=== PATIENT | female | born 1955 | race Caucasian/White ===

== ENCOUNTER 2018-04-20 23:31 | Outpatient (CLI) | payer OTHER | END 2018-04-20 23:32 | disposition critical access hospital (66) | LOC: EMS 23:31 | PROVIDERS: ATTEND Surgery | DX: Z72.89 Other problems related to lifestyle (principal) | CPT/HCPCS: A0425; A0429 ==

== ENCOUNTER 2018-04-20 23:36 | Emergency (ER) | payer OTHER ==
[2018-04-20] MEDS ORDERED: SODIUM CHLORIDE 0.9% 1,000 ML IV STA (23:50)
[2018-04-20] MEDS ORDERED: ONDANSETRON 4 MG/2 ML VIAL IVP STA (23:50)
[2018-04-21 00:16] LABS: BASOPHILS # (AUTO) 0.1 10^3/uL (0.0-0.1); BASOPHILS % (AUTO) 1.1 %; EOSINOPHILS # (AUTO) 0.1 10^3/uL (0.0-0.7); EOSINOPHILS % (AUTO) 1.4 %; HGB - HEMOGLOBIN 14.3 g/dL (12.0-16.0); LYMPHOCYTES # (AUTO) 2.2 10^3/uL (1.5-3.5); LYMPHOCYTES % (AUTO) 28.1 %; MEAN CORPUSCULAR HEMOGLOBIN 32.4 pg (27.0-31.0); MEAN CORPUSCULAR HGB CONC 34.1 g/dL (32.0-36.0); MEAN CORPUSCULAR VOLUME 95.1 fL (81.0-99.0); MEAN PLATELET VOLUME 6.8 fL (7.9-10.8); MONOCYTES # (AUTO) 0.4 10^3/uL (0.0-1.0); MONOCYTES % (AUTO) 4.9 %; NEUTROPHILS # (AUTO) 4.9 10^3/uL (1.5-6.6); NEUTROPHILS % (AUTO) 64.5 %; PLT - PLATELET COUNT 415 10^3/uL (130-450); RED CELL DISTRIBUTION WIDTH 14.9 % (12.0-15.0); WHITE BLOOD COUNT 7.7 x10^3/uL (4.8-10.8)
--- NOTE | 2018-04-21 00:20 | ED Physician Documentation ---
PD HPI NVD - Stated complaint Stated Complaint: ETOH - Chief complaint Chief Complaint: Abd Pain - History obtained from History obtained from: Patient - History of Present Illness Timing - onset: How many days ago (3) Timing - details: Gradual onset, Intermittant Associated symptoms: Abdominal pain (mild dull discomfort across upper abdomen). No: Fever Contributing factors: Alcohol use Improved by: Other (nothing) Worsened by: Other (no exacerbating factors) Recently seen: Not recently seen - Additonal information Additional information: visiting [place] a conference. she tells me she is in ED tonight because she has been drinking more than eating food. with prompting, she elaborates that she has a h/o alcoholism and has been drinking a few (per patient) bottles of wine per day for the past several days. c/o mild upper abdominal dull, burning pain and nausea, mild anxiety Review of Systems Cardiac: reports: Reviewed and negative Respiratory: reports: Reviewed and negative GI: reports: Abdominal Pain, Nausea. denies: Vomiting : denies: Dysuria, Frequency PD PAST MEDICAL HISTORY - Past Medical History Past Medical History: Yes Endocrine/Autoimmune: HyPOthyroidism - Past Surgical History Past Surgical History: Yes General: Hiatal hernia repair - Present Medications Home Medications: Ambulatory Orders Medication Instructions Recorded Confirmed Levothyroxine Sodium [Levoxyl] 1 tab PO DAILY 04/20/18 04/20/18 LORazepam [Lorazepam] 0.5 - 1 mg PO Q6HR PRN #20 tablet 04/21/18 Ondansetron Odt [Zofran] 4 mg TL Q6H PRN #10 tablet 04/21/18 - Allergies Allergies/Adverse Reactions: Allergies Allergy/AdvReac Type Severity Reaction Status Date / Time No Known Drug Allergies Allergy Verified 04/20/18 23:44 - Social History Does the pt smoke?: No Smoking Status: Never smoker Does the pt drink ETOH?: Yes Does the pt have substance abuse?: No - Immunizations Immunizations are current?: Yes - POLST Patient has POLST: No PD ED PE NORMAL - Vitals Vital signs reviewed: Yes - General General: Alert and oriented X 3, No acute distress, Well developed/nourished - Cardiac Cardiac: RRR, No murmur - Respiratory Respiratory: No respiratory distress, Clear bilaterally - Abdomen Abdomen: Soft, Non tender - Extremities Extremities: No edema - Neuro Neuro: Alert and oriented X 3 Results - Vitals Vitals: Vital Signs - 24 hr 04/20/18 23:35 Temperature 36.2 C L Heart Rate 115 H Respiratory 18 Rate Blood Pressure 139/86 H O2 Saturation 94 Oxygen O2 Source Room air - Labs Labs: Laboratory Tests 04/20/18 04/20/18 23:59 23:59 WBC 7.7 RBC 4.40 Hgb 14.3 Hct 41.9 MCV 95.1 MCH 32.4 H MCHC 34.1 RDW 14.9 Plt Count 415 MPV 6.8 L Neut # (Auto) 4.9 Lymph # (Auto) 2.2 [place] # (Auto) 0.4 Eos # (Auto) 0.1 Baso # (Auto) 0.1 Absolute Nucleated RBC 0.01 Nucleated RBC % 0.1 Serum Ketones NEGATIVE PD MEDICAL DECISION MAKING - ED course Complexity details: reviewed results, re-evaluated patient, considered differential, d/w patient ED course: given iv fluids, zofran, and lorazepam in ED. she slept for several hours and, on reevaluation in the morning, she was awake, alert, oriented x 3, NAD. test results reviewed and questions answered. Departure - Departure Disposition: 01 Home, Self Care Clinical Impression: Alcoholism Condition: Good Instructions: ED Alcohol Intoxication, ED Alcohol Abuse Prescriptions: LORazepam [Lorazepam] 0.5 - 1 mg PO Q6HR PRN #20 tablet PRN Reason: Alcohol Withdrawal Ondansetron Odt [Zofran] 4 mg TL Q6H PRN #10 tablet PRN Reason: Nausea / Vomiting Discharge Date/Time: 04/21/18 06:20
[2018-04-21 00:24] LABS: ALBUMIN 4.2 g/dL (3.2-5.5); ALBUMIN/GLOBULIN RATIO 1.4 (1.0-2.2); BILIRUBIN,TOTAL 0.5 mg/dL (0.2-1.0); CALCIUM 8.4 mg/dL (8.5-10.3); CREATININE 0.6 mg/dL (0.4-1.0); TOTAL PROTEIN 7.2 g/dL (6.7-8.2)
[2018-04-21] MEDS ORDERED: LORazepam 2 MG/ML VIAL IVP STA (00:28)
[2018-04-21] MEDS ORDERED: SODIUM CHLORIDE 0.9% 1,000 ML IV STA (00:28)
[2018-04-21 05:44] VITALS: BP 111/68
== END 2018-04-21 06:20 | disposition home or self-care (01) ==
LOC: ED 23:36
DX: F10.20 Alcohol dependence, uncomplicated (principal); E03.9 Hypothyroidism, unspecified
CPT/HCPCS: 36415; 80053; 80320; 82009; 83690; 85025; 96361; 96374; 96375; 99283; 99284; J2060